=== PATIENT | female | born 1975 | race African-American/Black ===

== ENCOUNTER 2017-02-22 18:35 | Emergency (ER) | payer MEDICAID ==
[~2017-02-22] VITALS: Ht 177.8 cm; Wt 108.0 kg
[~2017-02-22 18:35] MED LIST: DIPH25CA83 PO
[2017-02-22] MEDS ORDERED: HYDROCODONE/APAP 7.5/325MG 1 TAB TABLET PO ONE (22:45)
[2017-02-22] MEDS ORDERED: ONDANSETRON 4MG ODT PO ONE (22:45)
[2017-02-23 00:15] LABS: CLARITY URINE CLOUDY (CLEAR); COLOR URINE YELLOW (YELLOW); GLUCOSE URINE NEGATIVE (NEGATIVE); KETONES URINE NEGATIVE (NEGATIVE); LEUKOCYTE ESTERASE URINE NEGATIVE (NEGATIVE); NITRITE URINE POSITIVE (NEGATIVE); OCCULT BLOOD URINE 2+ (NEGATIVE); PROTEIN URINE NEGATIVE (NEGATIVE); SPECIFIC GRAVITY URINE 1.029 (1.005-1.030); UROBILINOGEN URINE 0.2 E.U./dL (0.2-1.0)
[2017-02-23 01:30] VITALS: BP 145/81
[2017-02-23] MEDS ORDERED: CEPHALEXIN 500MG CAPSULE PO ONE (01:30)
== END 2017-02-23 01:38 | disposition home or self-care (01) ==
LOC: ER 19:37
DX: G89.29 Other chronic pain (principal); M54.5 Low back pain; N39.0 Urinary tract infection, site not specified; I10 Essential (primary) hypertension; Z90.49 Acquired absence of other specified parts of digestive tract; Z90.710 Acquired absence of both cervix and uterus; Z88.6 Allergy status to analgesic agent
CPT/HCPCS: 72100; 81001; 81025; 99285; Q0162; Z7610

== ENCOUNTER 2017-12-11 22:24 | Emergency (ER) | payer MEDICAID ==
[~2017-12-11] VITALS: Ht 177.8 cm; Wt 105.5 kg
[2017-12-12] MEDS ORDERED: DIAZEPAM 2 MG TABLET PO ONE (01:00)
[2017-12-12 01:40] LABS: CLARITY URINE CLEAR (CLEAR); COLOR URINE YELLOW (YELLOW); KETONES URINE NEGATIVE (NEGATIVE); LEUKOCYTE ESTERASE URINE NEGATIVE (NEGATIVE); NITRITE URINE POSITIVE (NEGATIVE); OCCULT BLOOD URINE 1+ (NEGATIVE); PROTEIN URINE NEGATIVE (NEGATIVE); SPECIFIC GRAVITY URINE 1.018 (1.005-1.030); UROBILINOGEN URINE 0.2 E.U./dL (0.2-1.0)
[2017-12-12 02:02] LABS: *COCAINE SCREEN URINE NEGATIVE (NEGATIVE)
[2017-12-12 02:03] LABS: *BENZODIAZEPINES SCREEN URINE NEGATIVE (NEGATIVE); CANNABINOID URINE SCREEN NEGATIVE (NEGATIVE); METHADONE URINE SCREEN NEGATIVE (NEGATIVE); PHENCYCLIDINE URINE SCREEN NEGATIVE (NEGATIVE)
[2017-12-12 02:06] LABS: *AMPHETAMINES SCREEN URINE NEGATIVE (NEGATIVE); *BARBITURATES SCREEN URINE NEGATIVE (NEGATIVE)
[2017-12-12 02:11] LABS: BASOPHILS % 1.2 % (0.0-2.0); EOSINOPHILS % 2.7 % (0.0-5.0); HEMATOCRIT. 37.2 % (36.0-48.0); LYMPHOCYTES % 48.1 % (20.0-50.0); MEAN CORPUSCULAR VOLUME 91.5 fL (81.0-99.0); MEAN PLATELET VOLUME 7.3 fl (7.4-10.4); PLATELET 278 x1000/uL (130-400); RED BLOOD CELL COUNT 4.07 mill/uL (4.2-5.4); RED CELL DISTRIBUTION WIDTH 13.2 % (11.6-14.6)
[2017-12-12 02:13] LABS: OPIATES URINE SCREEN PRESUMTIVE POSITIVE (NEGATIVE)
[2017-12-12 02:14] LABS: CHLORIDE 108 mEq/L (98-107)
[2017-12-12 02:15] LABS: PARTIAL THROMBOPLASTIN TIME 24.7 sec (23.4-31.0); PROTHROMBIN TIME 9.8 sec (9.1-11.1)
[2017-12-12 02:29] LABS: HCG SCREEN NEGATIVE
[2017-12-12] MEDS ORDERED: HYDROCODONE/ACETAMINOPHEN 5/325MG TABLET PO ONE (03:15)
[2017-12-12 05:45] VITALS: BP 156/87
== END 2017-12-12 05:45 | disposition home or self-care (01) ==
LOC: ER 12-12 01:19
DX: M43.02 Spondylolysis, cervical region (principal); M54.12 Radiculopathy, cervical region; M79.622 Pain in left upper arm; F17.200 Nicotine dependence, unspecified, uncomplicated; Z90.49 Acquired absence of other specified parts of digestive tract; Z90.710 Acquired absence of both cervix and uterus; Z98.51 Tubal ligation status; Z88.6 Allergy status to analgesic agent
CPT/HCPCS: 36415; 71045; 72141; 80053; 80305; 81003; 81025; 83880; 84484; 84703; 85025; 85610; 85730; 93005; 99285; Z7610

== ENCOUNTER 2018-11-18 23:48 | Emergency (ER) | payer MEDICAID ==
[~2018-11-18] VITALS: Ht 175.3 cm; Wt 107.0 kg
[2018-11-19 03:00] VITALS: BP 138/92
[2018-11-19] MEDS ORDERED: CYCLOBENZAPRINE 10MG TABLET PO ONE (04:15)
[2018-11-19 04:26] LABS: BASOPHILS % 1.4 % (0.0-2.0); EOSINOPHILS % 3.1 % (0.0-5.0); HEMATOCRIT. 38.1 % (36.0-48.0); LYMPHOCYTES % 43.1 % (20.0-50.0); MEAN CORPUSCULAR HEMOGLOBIN 31.4 pg (28.0-32.0); MEAN CORPUSCULAR VOLUME 92.2 fL (81.0-99.0); MEAN PLATELET VOLUME 7.2 fl (7.4-10.4); MONOCYTES % 5.2 % (2.0-8.0); NEUTROPHILS % 47.2 % (40.0-76.0); PLATELET 283 x1000/uL (130-400); RED BLOOD CELL COUNT 4.13 mill/uL (4.2-5.4); RED CELL DISTRIBUTION WIDTH 13.5 % (11.6-14.6)
[2018-11-19 04:27] LABS: CHLORIDE 109 mEq/L (98-107)
[2018-11-19 04:34] LABS: CLARITY URINE CLEAR (CLEAR); COLOR URINE YELLOW (YELLOW); KETONES URINE NEGATIVE (NEGATIVE); LEUKOCYTE ESTERASE URINE NEGATIVE (NEGATIVE); NITRITE URINE NEGATIVE (NEGATIVE); OCCULT BLOOD URINE 1+ (NEGATIVE); PROTEIN URINE NEGATIVE (NEGATIVE); SPECIFIC GRAVITY URINE 1.009 (1.005-1.030); UROBILINOGEN URINE 0.2 E.U./dL (0.2-1.0)
== END 2018-11-19 05:43 | disposition left against medical advice (07) ==
LOC: ER 23:48
DX: M54.2 Cervicalgia (principal)
CPT/HCPCS: 36415; 80048; 81025; 84484; 99283

== ENCOUNTER 2024-02-14 11:13 | Emergency (ER) | payer MEDICAID ==
[~2024-02-14] VITALS: Ht 175.3 cm; Wt 112.0 kg
[2024-02-14 11:20] VITALS: O2SAT 99
[2024-02-14] MEDS ORDERED: TRAMADOL 50MG TABLET PO ONE (12:15)
[2024-02-14 14:00] VITALS: TEMP 36.72516; O2SAT 99
[2024-02-14 14:09] VITALS: BP 130/78; PULSE 74; RESP 14
[2024-02-14] MEDS: TRAMADOL 50MG TABLET PO NR (14:09)
== END 2024-02-14 16:51 | disposition home or self-care (01) ==
LOC: ER 11:13
DX: M17.11 Unilateral primary osteoarthritis, right knee (principal); Z88.6 Allergy status to analgesic agent
CPT/HCPCS: 73562; 93971; 99284